=== PATIENT | female | born 1960 | race Asian ===

== ENCOUNTER 2017-04-28 08:52 | Outpatient (CLI) | payer MEDICARE ==
--- NOTE | 2017-04-29 08:55 | PET Report ---
PET SB TO MT SUBSEQUENT: HISTORY: Restaging of breast cancer. TECHNIQUE: 13.8 millicuries F-18 FDG was administered intravenously. Noncontrast CT images and PET images were obtained from the skull base to the proximal thighs. Fused images were reviewed on a workstation. The patient's blood glucose level measured 107. COMPARISON: 10/18/13. FINDINGS: BRAIN: physiologic FDG uptake in the imaged brain. NECK: physiologic FDG uptake. MEDIASTINUM: physiologic FDG uptake. LUNGS: physiologic FDG uptake. CHEST WALL: Surgical changes are noted in both breasts. No recurrent breast mass or chest wall mass is appreciated. PLEURA/PERICARDIUM: physiologic FDG uptake. There is a new layering left pleural effusion measuring up to 2 cm in thickness. No pleural mass or nodularity is appreciated on noncontrast CT images. THORACIC LYMPH NODES: physiologic FDG uptake. HEPATOBILIARY: physiologic FDG uptake. Mean liver SUV measures . PANCREAS: physiologic FDG uptake. SPLEEN: physiologic FDG uptake. ADRENAL GLANDS: physiologic FDG uptake. KIDNEYS/RENAL COLLECTING SYSTEMS: physiologic FDG uptake. BOWEL/MESENTERY: physiologic FDG uptake. PELVIC VISCERA: physiologic FDG uptake. ABDOMINAL/PELVIC LYMPH NODES: physiologic FDG uptake. MUSCULOSKELETAL: There is a new focus of increased radiotracer uptake in the proximal right femur with Max SUV measuring 7.7. There is subtle sclerosis in this area on the CT images. No additional bony lesions are appreciated. IMPRESSION: PET imaging demonstrates a new solitary bony metastasis to the proximal right femur since 10/18/13 exam. There is a new small layering left pleural effusion as outlined above. No obvious pleural metastasis on the CT images or PET images.
== END 2017-04-28 08:53 | disposition home or self-care (01) ==
LOC: PET 08:52
PROVIDERS: ATTEND Internal Medicine Hematology & Oncology
DX: C79.51 Secondary malignant neoplasm of bone (principal); C50.912 Malignant neoplasm of unspecified site of left female breast; J90 Pleural effusion, not elsewhere classified; I10 Essential (primary) hypertension; D50.9 Iron deficiency anemia, unspecified; F32.9 Major depressive disorder, single episode, unspecified; Z79.899 Other long term (current) drug therapy
CPT/HCPCS: 78815; 82962; A9552

== ENCOUNTER 2017-06-01 06:40 | Day surgery (SDC) | payer MEDICARE ==
[2017-06-01 07:50] VITALS: BP 126/77
[2017-06-01 07:51] LABS: INR 1.05 (0.87-1.13)
[2017-06-01 07:52] LABS: Partial Thromboplastin Time 32.6 Sec. (24.2-36.6)
--- NOTE | 2017-06-03 10:18 | Ultrasound Report ---
ULTRASOUND CHEST History: Left pleural effusion. Findings: Targeted grayscale ultrasound of the left side of the chest demonstrates a small left pleural effusion estimated at 17 cc. Thoracentesis was not performed. Impression: Small left pleural effusion.
== END 2017-06-01 09:11 | disposition home or self-care (01) ==
LOC: CATHLABREC 06:40 → EDSTATUS 07:30 → CATHLABREC 09:11
PROVIDERS: ATTEND Specialist
DX: J90 Pleural effusion, not elsewhere classified (principal); Z53.8 Procedure and treatment not carried out for other reasons
CPT/HCPCS: 36415; 76604; 85610; 85730

== ENCOUNTER 2017-06-24 10:04 | Outpatient (CLI) | payer MEDICARE ==
--- NOTE | 2017-06-24 11:12 | XRay Report ---
CHEST 2 VIEWS INDICATION: Left effusion. COMPARISON: 12/29/2009 FINDINGS: PA and lateral chest radiographs demonstrate increased left lower lung opacity/fluid with obscured left hemidiaphragm. Clear remainder lungs. New bilateral breast surgical clips with asymmetric soft tissue shadows. Grossly normal heart size. Stable chest port tip along the distal SVC. Mild thoracic spondylosis. Few surgical clips also project in the lower back soft tissues and upper anterior abdominal wall. CONCLUSION: New bilateral breast postsurgical changes with increased left lower lung opacity/effusion and stable right chest port since 2009, as described. Thank you for the opportunity to participate in this patient's care.
== END 2017-06-24 10:05 | disposition home or self-care (01) ==
LOC: XRAY 10:04
PROVIDERS: ATTEND Specialist
DX: J90 Pleural effusion, not elsewhere classified (principal); M47.894 Other spondylosis, thoracic region
CPT/HCPCS: 71020

== ENCOUNTER 2017-07-11 16:10 | Outpatient (CLI) | payer MEDICARE ==
--- NOTE | 2017-07-11 16:58 | XRay Report ---
RIGHT FEMUR RADIOGRAPHS INDICATION: Bone lesion of right femur. COMPARISON: 04/28/2017 PET/CT. FINDINGS: AP and lateral radiographs demonstrate intact right femur. Small hypermetabolic focus felt along the right proximal femur lateral cortex at or just below the level of the lesser trochanter not clearly identified on the plain radiographs. Unremarkable soft tissues. Mild right knee degenerative changes. Few right hemipelvic surgical clips. CONCLUSION: No definite right femur plain radiographic abnormality with few other findings, as described above. Please correlate. Thank you for the opportunity to participate in this patient's care.
== END 2017-07-11 16:11 | disposition home or self-care (01) ==
LOC: XRAY 16:10
PROVIDERS: ATTEND Internal Medicine Hematology & Oncology
DX: M17.11 Unilateral primary osteoarthritis, right knee (principal); M89.8X5 Other specified disorders of bone, thigh; C50.912 Malignant neoplasm of unspecified site of left female breast; I10 Essential (primary) hypertension

== ENCOUNTER 2017-10-11 10:00 | Day surgery (SDC) | payer MEDICARE | END 2017-10-11 10:01 | disposition home or self-care (01) | LOC: CATHLABREC 10:00 | PROVIDERS: ATTEND Internal Medicine Hematology & Oncology | DX: C50.912 Malignant neoplasm of unspecified site of left female breast (principal); Z53.8 Procedure and treatment not carried out for other reasons ==

== ENCOUNTER 2017-10-13 07:47 | Day surgery (SDC) | payer MEDICARE ==
[2017-10-13 08:40] LABS: Basophils % (Auto) 0.7 % (0.0-1.8); Eosinophils # (Auto) 0.3 K/mm3 (0.0-0.4); Eosinophils % (Auto) 5.2 % (0.0-4.3); Hematocrit 36.8 % (30.3-42.9); Hemoglobin 12.1 gm/dl (10.1-14.3); Lymphocytes % (Auto) 18.4 % (13.4-35.0); Mean Corpuscular HGB Conc 33 % (30-34); Mean Corpuscular Hemoglobin 28 pg (28-32); Mean Corpuscular Volume 85 fl (79-97); Monocytes # (Auto) 0.4 K/mm3 (0.0-0.8); Monocytes % (Auto) 7.6 % (0.0-7.3); Platelet Count 291 K/mm3 (140-440); Red Blood Count 4.32 M/mm3 (3.65-5.03); Red Cell Distribution Width 15.7 % (13.2-15.2)
[2017-10-13 08:51] LABS: INR 1.06 (0.87-1.13)
[2017-10-13 08:52] LABS: Partial Thromboplastin Time 32.6 Sec. (24.2-36.6)
[2017-10-13 09:14] LABS: Blood Urea Nitrogen 10 mg/dL (7-17)
[2017-10-13] MEDS ORDERED: VERSED IV ONE ×2 (09:50→11:00)
[2017-10-13] MEDS ORDERED: SUBLIMAZE ONE (09:50)
[2017-10-13] MEDS ORDERED: SUBLIMAZE IV ONE (11:00)
--- NOTE | 2017-10-13 11:45 | Cat Scan Report ---
CT guided biopsy of left supraclavicular mass. History: Breast cancer with palpable lump in the left supraclavicular region. Procedure: The patient's skin surface overlying the left supraventricular region was prepped and draped using sterile technique. Local anesthetic was injected into the skin. There is increased soft tissue density in the left supraclavicular region which may represent edematous muscle. No enlarged lymph nodes are identified. Using CT guidance, a 17-gauge sheath needle was advanced into the area of interest in a single pass was made using an 18-gauge biopsy gun. Adequate tissue was obtained. Initial touch prep slides demonstrated muscle tissue, and thus the procedure was terminated. Intravenous conscious sedation was used. Intraservice time was 15 minutes. Independent cardiorespiratory monitoring was performed by the outpatient procedure nurse for 15 minutes. The patient tolerated the procedure well and was sent to the outpatient procedure unit for short term observation in satisfactory condition. There were no complications.
[2017-10-13 12:27] VITALS: BP 113/73
== END 2017-10-13 13:00 | disposition home or self-care (01) ==
LOC: CATHLABREC 07:47
PROVIDERS: ATTEND Internal Medicine Hematology & Oncology
DX: D36.7 Benign neoplasm of other specified sites (principal); Z85.3 Personal history of malignant neoplasm of breast; I10 Essential (primary) hypertension; D50.9 Iron deficiency anemia, unspecified; F32.9 Major depressive disorder, single episode, unspecified; M79.1 Myalgia; E66.9 Obesity, unspecified; C79.51 Secondary malignant neoplasm of bone; E55.9 Vitamin D deficiency, unspecified
CPT/HCPCS: 20206; 36415; 77012; 82565; 84520; 85025; 85610; 85730; 88305; 88307; J2250; J3010; Q9967; 88333

== ENCOUNTER 2017-10-14 08:10 | Outpatient (CLI) | payer MEDICARE ==
--- NOTE | 2017-10-13 11:56 | Short Stay Summary ---
Short Stay Documentation Date of service: 10/13/17 - History Principal diagnosis: Breast cancerwith neckmass Past Medical History: cancer - Allergies and Medications Current Medications: Allergies No Known Allergies Allergy (Verified 06/01/17 06:59) Home Medications Medication Instructions Recorded Confirmed Last Taken Type Duloxetine HCl [Cymbalta] 20 mg PO QDAY 06/01/17 10/13/17 10/12/17 History 20mg Losartan/Hydrochlorothiazide 1 each PO DAILY 06/01/17 10/13/17 10/12/17 History [Losartan-Hctz 100-25 mg Tab] 1 tab Gabapentin [Neurontin] 600 mg PO TID 10/13/17 10/13/17 10/12/17 History 600mg - Physical exam General appearance: no acute distress - Brief post op/procedure progress note Date of procedure: 10/13/17 Pre-op diagnosis: L neck mass Post-op diagnosis: same Procedure: Bx Lneckmass Anesthesia: local Surgeon: VIRY PARKS Estimated blood loss: none Specimen disposition: to lab Condition: stable - Disposition Condition at discharge: Good Disposition: DC-01 TO HOME OR SELFCARE Short Stay Discharge Plan Follow up with: HUBER JACOBO MD [Primary Care Provider] - 7 Days
[2017-10-14] MEDS ORDERED: FLUSH HEPARIN IV ONE (08:35)
[2017-10-14] MEDS ORDERED: FLUSH HEPARIN IV NR (08:36)
--- NOTE | 2017-10-14 11:53 | Magnetic Resonance Report ---
MRI BRAIN WITH/WITHOUT CONTRAST: History: Malignant neoplasm of left breast. Technique: Multiple T1 and T2 weighted images were obtained in multiple planes. Axial diffusion and gradient imaging was performed. Post contrast T1 images in two planes were obtained following IV gadolinium. Findings: The brain parenchyma signal intensity and its roy-white interface are normal on all sequences. No abnormal parenchymal signal. No diffusion restriction, hemorrhage, mass effect or extra-axial fluid collection. Ventricular size is normal and symmetric. The basal cisterns are clear. The brainstem and cerebellar hemispheres are within normal limits. The fourth ventricle is midline. There is mild mucosal thickening throughout all paranasal sinuses. Normal flow voids are identified in the appropriate vessels at the sob[place] of [place]. No abnormal enhancement is identified following IV gadolinium. Impression: Unremarkable MRI brain with and without contrast. No evidence for metastatic disease to the brain. Mild chronic sinusitis.
--- NOTE | 2017-10-14 15:27 | Nuclear Medicine Report ---
NUCLEAR MEDICINE MUGA GATED CARDIAC History: Breast cancer Findings: Planar images of the heart demonstrate no obvious wall motion defects. The cardiac ejection fraction is measured at 63%. Heart rate measured 80 beats per minute. Impression: The cardiac ejection fraction measures 63%.
== END 2017-10-14 08:11 | disposition home or self-care (01) ==
LOC: NM 08:10
PROVIDERS: ATTEND Internal Medicine Hematology & Oncology
DX: C50.912 Malignant neoplasm of unspecified site of left female breast (principal); C79.51 Secondary malignant neoplasm of bone; J32.9 Chronic sinusitis, unspecified; I10 Essential (primary) hypertension; F32.9 Major depressive disorder, single episode, unspecified; Z79.899 Other long term (current) drug therapy
CPT/HCPCS: 70553; 78472; A9560; A9577; J1642

== ENCOUNTER 2018-02-08 12:15 | Outpatient (CLI) | payer MEDICARE ==
[2018-02-08] MEDS ORDERED: FLUSH HEPARIN IV ONE (12:27)
--- NOTE | 2018-02-09 11:21 | Nuclear Medicine Report ---
MUGA scan: chemotherapy. Following injection of technetium 99m tagged RBCs images of the left ventricle were obtained in the 30 and 35degrees projections. Ejection fractions of 58.4 and 64.1% respectively are obtained giving an average of 61.2%. In 2010 the patient had a 68% ejection fraction. Impression: 61.2% ejection fraction.
== END 2018-02-08 12:16 | disposition home or self-care (01) ==
LOC: NM 12:15
PROVIDERS: ATTEND Internal Medicine Hematology & Oncology
DX: Z51.11 Encounter for antineoplastic chemotherapy (principal); C79.51 Secondary malignant neoplasm of bone; C50.912 Malignant neoplasm of unspecified site of left female breast; I10 Essential (primary) hypertension; Z79.899 Other long term (current) drug therapy
CPT/HCPCS: 78472; A9560; J1642

== ENCOUNTER 2018-03-27 08:53 | Outpatient (CLI) | payer MEDICARE ==
--- NOTE | 2018-03-27 15:20 | Nuclear Medicine Report ---
BONE SCAN: History: Left breast cancer. Comparison: No recent comparison. Correlation is made with a PET CT dated 08/04/17. After injection of isotope, gamma camera imaging of the bony system was done. There is normal soft tissue, renal and bony activity. There are 2 tiny foci of increased radiotracer uptake overlying the expected position of the T4 vertebral body and C6 vertebral body. The previously described hypermetabolic activity in the proximal right femur is not demonstrated on bone scan. No additional areas of abnormal uptake are detected. IMPRESSION: There are 2 tiny foci of increased radiotracer uptake at approximate T4 and T6 levels concerning for metastatic disease. See above.
== END 2018-03-27 08:54 | disposition home or self-care (01) ==
LOC: NM 08:53
DX: C50.912 Malignant neoplasm of unspecified site of left female breast (principal); K21.9 Gastro-esophageal reflux disease without esophagitis; M19.90 Unspecified osteoarthritis, unspecified site; F32.9 Major depressive disorder, single episode, unspecified; F41.9 Anxiety disorder, unspecified; I10 Essential (primary) hypertension; Z90.710 Acquired absence of both cervix and uterus
CPT/HCPCS: 78306; A9503

== ENCOUNTER 2018-04-06 12:41 | Outpatient (CLI) | payer MEDICARE ==
--- NOTE | 2018-04-07 08:31 | PET Report ---
PET/CT:04/06/18 12:41:00 CLINICAL: Breast cancer restaging. RADIOPHARMACEUTICAL: 14.949mCi F18-FDG. COMPARISON: 08/04/17 PET/CT TECHNIQUE- Following intravenous injection of F-18 FDG and an approximately 60 minute uptake period, CT and PET images from the mid skull to the upper thighs were acquired with the patient in the fasted state. No contrast was administered. The CT protocol used for this PET CT study is designed for attenuation correction and anatomic localization of PET abnormalities. This plumbing service technician CT is not desired to produce and cannot replace, cutrc-gj-emp-art diagnostic CT scans with specific imaging protocols for different body parts and indications. Plasma glucose at the time of this test: 100g/dl. The standardized uptake values (SUV) are normalized to patient body weight and indicate the highest activity concentration (SUV max) in a given disease site. FINDINGS: Brain--Physiologic FDG uptake in the visualized regions of the brain. Neck--Physiologic FDG uptake in mucosal structures. No mass or lymphadenopathy. Chest--Physiologic FDG uptake in mediastinal blood pool and myocardium. Lungs--No abnormal uptake. Decreased size and number of bilateral upper lobe noncalcified non-FDG avid lung nodules. The previously described 4 mm left upper lobe nodule has resolved and 2 residual left upper lobe nodules measure 3 and 2 mm. The previously described 8mm right upper lobe nodule is nearly completely gone and a poorly marginated low density opacity remains in the right upper lobe. Pleura/pericardium--No abnormal uptake. Large bilateral pleural effusions. The left is unchanged compared to the previous exam and the right pleural effusion is new. Thoracic nodes--No abnormal uptake. Hepatobiliary--No abnormal uptake. Liver background SUV mean, as a reference for comparing FDG studies, is 3.2 compared to 3.6 on the last exam. No liver mass. Spleen--No abnormal uptake. Pancreas--No abnormal uptake. Adrenal Glands--No abnormal uptake. Kidneys/Ureters/Bladder--No abnormal uptake. Abdominopelvic Nodes--No abnormal uptake. Bowel/Peritoneum/Mesentery--No abnormal uptake. Pelvic organs--No abnormal uptake. Bones/Soft Tissues--No abnormal uptake. Previously described lytic lesions of the thoracic spine are now sclerotic and are non-FDG avid. The lesions are at T5 and T7 rather than at T4 and T6 as stated in the last report. The proximal right femur is normal. No new bone lesions. Other findings: Status post bilateral mastectomy with stable appearance of the reconstructed breasts and chest wall. IMPRESSION- 1. Interval improvement with decreased size and number of bilateral upper lobe pulmonary metastases. Despite the improvement, there is a new large right pleural effusion. 2. Positive treatment response in skeletal metastases at T5 and T7. 3. No new disease.
== END 2018-04-06 12:42 | disposition home or self-care (01) ==
LOC: PET 12:41
DX: C50.912 Malignant neoplasm of unspecified site of left female breast (principal); D50.9 Iron deficiency anemia, unspecified; F32.9 Major depressive disorder, single episode, unspecified; E66.9 Obesity, unspecified; C79.51 Secondary malignant neoplasm of bone; I10 Essential (primary) hypertension; R91.8 Other nonspecific abnormal finding of lung field; J90 Pleural effusion, not elsewhere classified; K21.9 Gastro-esophageal reflux disease without esophagitis; F41.9 Anxiety disorder, unspecified; M19.90 Unspecified osteoarthritis, unspecified site; R73.09 Other abnormal glucose; Z90.710 Acquired absence of both cervix and uterus; Z90.13 Acquired absence of bilateral breasts and nipples
CPT/HCPCS: 78815; 82962; A9552

== ENCOUNTER 2018-04-21 08:02 | Day surgery (SDC) | payer MEDICARE ==
[2018-04-21 10:02] LABS: INR 1.03 (0.87-1.13)
[2018-04-21 10:05] LABS: Partial Thromboplastin Time 31.1 Sec. (24.2-36.6)
--- NOTE | 2018-04-21 11:20 | Ultrasound Report ---
ULTRASOUND THORACENTESIS History: Left pleural effusion. Description of procedure: Informed consent was obtained. Sterile technique was utilized. 1% lidocaine for skin anesthesia. Using ultrasound guidance, a 5 Vincentian centesis needle was advanced into a simple appearing left pleural fluid collection. There was spontaneous return of clear yellow fluid. 900 cc of fluid was collected and discarded. No labs were ordered by the ordering physician. No complications. Impression: Successful therapeutic left thoracentesis under ultrasound guidance.
--- NOTE | 2018-04-21 11:24 | Short Stay Summary ---
Short Stay Documentation Date of service: 04/21/18 - History Principal diagnosis: left pleural effusion H&P: dictated Past Medical History: cancer - Allergies and Medications Current Medications: Allergies No Known Allergies Allergy (Verified 06/01/17 06:59) Home Medications Medication Instructions Recorded Confirmed Last Taken Type Duloxetine HCl [Cymbalta] 20 mg PO QDAY 06/01/17 04/21/18 04/20/18 History 20 mg Losartan/Hydrochlorothiazide 1 each PO DAILY 06/01/17 04/21/18 04/20/18 History [Losartan-Hctz 100-25 mg Tab] 1 tab Gabapentin [Neurontin] 600 mg PO TID 10/13/17 04/21/18 04/20/18 History 600 mg - Physical exam General appearance: no acute distress (decreased air movement on left) - Brief post op/procedure progress note Date of procedure: 04/21/18 Pre-op diagnosis: left pleural effusion Post-op diagnosis: same Procedure: US thoracentesis Anesthesia: local Findings: moderate left pleural fluid Surgeon: SVEN PAULINO Estimated blood loss: none Pathology: none Specimen disposition: discarded Condition: stable - Hospital course Hospital course: uneventful - Disposition Condition at discharge: Good Disposition: DC-01 TO HOME OR SELFCARE Short Stay Discharge Plan Follow up with: HUBER JACOBO MD [Primary Care Provider] - 7 Days
--- NOTE | 2018-04-21 13:17 | XRay Report ---
AP CHEST: HISTORY: Post thoracentesis, shortness of breath, evaluate for pneumothorax Recent ultrasound guided left thoracentesis was performed. Complete evacuation of the left pleural fluid is demonstrated. No pneumothorax is identified. The lungs are generally clear. Heart size is within normal limits. Right [id number]-Ikjb is in good position. IMPRESSION: Unremarkable AP chest. No pneumothorax is visualized.
[2018-04-21 14:34] VITALS: BP 123/63
== END 2018-04-21 13:50 | disposition home or self-care (01) ==
LOC: CATHLABREC 08:02 → EDSTATUS 09:00 → CATHLABREC 13:50
DX: J90 Pleural effusion, not elsewhere classified (principal); Z79.01 Long term (current) use of anticoagulants
CPT/HCPCS: 32555; 36415; 71045; 85610; 85730; 93970

== ENCOUNTER → 2018-05-16 | Outpatient (CLI) | payer MEDICARE | END | disposition home or self-care (01) | LOC: ECHO 11:57 | PROVIDERS: ATTEND Internal Medicine Cardiovascular Disease | DX: I07.1 Rheumatic tricuspid insufficiency (principal); I34.0 Nonrheumatic mitral (valve) insufficiency; J90 Pleural effusion, not elsewhere classified; I10 Essential (primary) hypertension; K21.9 Gastro-esophageal reflux disease without esophagitis; F32.9 Major depressive disorder, single episode, unspecified; F41.9 Anxiety disorder, unspecified; Z90.710 Acquired absence of both cervix and uterus; Z90.12 Acquired absence of left breast and nipple | CPT/HCPCS: 93306 ==

== ENCOUNTER 2018-09-07 13:47 | Outpatient (CLI) | payer MEDICARE ==
--- NOTE | 2018-09-08 13:52 | PET Report ---
PET/CT:09/07/18 13:47:00 CLINICAL: Breast cancer restaging. RADIOPHARMACEUTICAL: 14.78mCi F18-FDG. COMPARISON: 04/06/18 and 08/04/17 PET/CT TECHNIQUE- Following intravenous injection of F-18 FDG and an approximately 60 minute uptake period, CT and PET images from the mid skull to the upper thighs were acquired with the patient in the fasted state. No contrast was administered. The CT protocol used for this PET CT study is designed for attenuation correction and anatomic localization of PET abnormalities. This cribber CT is not desired to produce and cannot replace, droos-jf-xve-art diagnostic CT scans with specific imaging protocols for different body parts and indications. Plasma glucose at the time of this test: 94g/dl. The standardized uptake values (SUV) are normalized to patient body weight and indicate the highest activity concentration (SUV max) in a given disease site. FINDINGS: Brain--Physiologic FDG uptake in the visualized regions of the brain. Neck--Physiologic FDG uptake in mucosal structures. No mass or lymphadenopathy. Chest--Physiologic FDG uptake in mediastinal blood pool and myocardium. Lungs--No abnormal uptake. An oval circumscribed noncalcified non-FDG avid right upper lobe lung nodule measures 7 mm and correlates with the 9 mm nodule on the 08/04/17 exam. It was not seen on the last exam. No other lung nodules are identified. Pleura/pericardium--No abnormal uptake. Stable bilateral pleural effusions, left larger than right. Thoracic nodes--No abnormal uptake. Hepatobiliary--No abnormal uptake. Liver background SUV mean, as a reference for comparing FDG studies, is 3.5 compared to 3.2 on the last exam. No liver mass. Spleen--No abnormal uptake. Pancreas--No abnormal uptake. Adrenal Glands--No abnormal uptake. Kidneys/Ureters/Bladder--No abnormal uptake. Abdominopelvic Nodes--No abnormal uptake. Bowel/Peritoneum/Mesentery--No abnormal uptake. Pelvic organs--No abnormal uptake. Bones/Soft Tissues--No abnormal uptake. Stable sclerotic lesions of the T5 and T7 vertebral bodies. No new bone lesions. Other findings: Status post bilateral mastectomy with stable appearance of the reconstructed breast and chest wall. IMPRESSION- Stable disease. I suspect that the non-FDG avid right upper lobe lung nodule was present but was not imaged on the last exam because of breathing motion.
== END 2018-09-07 13:48 | disposition home or self-care (01) ==
LOC: PET 13:47
PROVIDERS: ATTEND Internal Medicine Hematology & Oncology
DX: C79.51 Secondary malignant neoplasm of bone (principal); C50.912 Malignant neoplasm of unspecified site of left female breast; C80.0 Disseminated malignant neoplasm, unspecified; I10 Essential (primary) hypertension; K21.9 Gastro-esophageal reflux disease without esophagitis; M19.90 Unspecified osteoarthritis, unspecified site; Z90.710 Acquired absence of both cervix and uterus; Z90.12 Acquired absence of left breast and nipple
CPT/HCPCS: 78815; 82962; A9552

== ENCOUNTER 2018-12-05 10:14 | Outpatient (CLI) | payer OTHER, MEDICARE ==
--- NOTE | 2018-12-05 13:36 | Magnetic Resonance Report ---
MRI THORACIC SPINE WITHOUT AND WITH CONTRAST: 12/05/18 10:56:00 CLINICAL: New onset right foot drop. History of breast cancer with pulmonary and skeletal metastasis. Previously identified vertebral body metastases at T5 and T7. COMPARISON: PET/CT 09/07/18 and 04/06/18. TECHNIQUE: Sagittal and axial T1 and T2, and sagittal STIR sequences plus sagittal and axial T1 fat-sat postcontrast sequences on a 1.5 Kylah magnet. 20 cc of Multihance was injected into previously for contrast portion of the exam and consent was obtained prior to the administration of contrast. FINDINGS: Normal vertebral body height, alignment and disk spaces. The spinal cord is normal size with normal signal. No mass or enhancing lesion of the cord or the spinal canal. The conus medullaris is normal and terminates at L1. Mixed signal of the T5 marrow correlates with previously identified metastatic disease. The rest of the bodies have normal signal except for a focal lesion of the left posterolateral T7 vertebral body. This correlates with the previous the identified lytic lesion and this 4 mm lesion demonstrates enhancement on this exam. There is also subtle enhancement of the left T7 neural foramen without identifiable enlargement or mass the nerve root. The disks are intact at all levels. Mild multilevel disc bulges but no disk protrusions. IMPRESSION: 1. A 4 mm enhancing lesion of the T7 vertebral body correlates with a previously identified metastatic lesion which had become non-FDG avid and developed a sclerotic treatment response on previous exams. The enhancement suggests that tumor growth has reactivated. 2. No new bone lesions identified. 3. Focal enhancement of the left T7 neural foramen without identifiable mass or nerve root enlargement is suspicious for extension of metastatic disease into the neural foramen. 4. No cord lesion identified. 5. No clear explanation for foot drop.
--- NOTE | 2018-12-05 14:11 | Magnetic Resonance Report ---
MRI LUMBAR SPINE WITHOUT AND WITH CONTRAST: 12/05/18 CLINICAL: Newly acquired right foot drop. History of breast cancer with pulmonary and skeletal metastasis. Metastases involving T5 and T7 have been imaged on several PET exams. COMPARISON: PET/CT 09/07/18 at 04/06/18 TECHNIQUE: Sagittal and axial T1 and T2, sagittal STIR and sagittal and axial postcontrast T1 fat sat sequences a 1.5 Kylah magnet. 20.0 cc of Multihance was injected intravenously for the contrast portion of the exam and consent was obtained prior to the administration of the contrast. FINDINGS: There is slight grade I L4-5 spondylolisthesis with no pars defect. The rest of the vertebra are in normal alignment. Normal marrow signal with no bone lesion identified. Decreased T2 disc signal at L1-L4. The conus medullaris is normal and terminates at L1-2. No mass or enhancing lesion. The soft tissues are normal except for fluid in the subcutaneous soft tissues of the back which are typical with someone who is in the supine position for an extended period. L1-2: Intact. L2-3: Intact. L3-4: Intact. L4-5: Mild circumferential disc bulge. Bilateral facet hypertrophy contributes to mild bilateral neural foraminal narrowing. L5-S1: Intact. IMPRESSION: 1. Slight grade I L4-5 spondylolisthesis and mild L4-5 degenerative disc disease with mild bulge of the disc. 2. Mild bilateral L4-5 neural foraminal narrowing. 3. No evidence of metastatic disease.
== END 2018-12-05 10:15 | disposition home or self-care (01) ==
LOC: MRI 10:14
PROVIDERS: ATTEND Internal Medicine Hematology & Oncology
DX: M51.36 Other intervertebral disc degeneration, lumbar region (principal); M48.061 Spinal stenosis, lumbar region without neurogenic claudication; M43.16 Spondylolisthesis, lumbar region; M51.26 Other intervertebral disc displacement, lumbar region; M21.371 Foot drop, right foot; I10 Essential (primary) hypertension; K21.9 Gastro-esophageal reflux disease without esophagitis; M19.90 Unspecified osteoarthritis, unspecified site; Z90.710 Acquired absence of both cervix and uterus; Z90.12 Acquired absence of left breast and nipple
CPT/HCPCS: 72157; 72158; A9577